=== PATIENT | female | born 2005 | race Two or more races ===

== ENCOUNTER 2024-12-07 19:17 | Observation (INO) | payer SELFPAY ==
[2024-12-07 19:26] VITALS: BP 115/77; PULSE 92; RESP 16; TEMP 37.6; O2SAT 99; BMI 21.3
--- NOTE | 2024-12-07 20:30 | EDNOTE_ITS ---
ED GI Bleed RME/HPI General Chief complaint: GI Bleed Stated complaint: RECTAL BLEEDING WITH BM, 7 WKS Time Seen by Provider: 12/07/24 20:20 Arrival date/time: 12/07/24 19:17 RME / HPI RME / HPI Narrative: This section includes all my notes and documentations, including HPI, PE, and ED course. Ildefonso Olivera MD HPI: 19-year-old female here to be evaluated with several days of rectal pain and blood with stools. She is currently , [place] 28 weeks. Baby has been moving well. No contractions. No vaginal bleeding. No hematemesis or coffee- ground emesis. No tarry stools. No other complaints. ROS: All negative except as documented in HPI. Physical Exam: General: Alert and oriented. No acute distress when remaining still. Eyes: Conjunctivae and lids clear. ENT: No nasal congestion. Neck: Supple. Heart: RRR. Lungs: No respiratory distress. Good air movement. No rhonchi, wheezing, rales. Abdomen: Soft and nontender. Normal bowel sounds. No distension. No rebound or guarding. Back: No CVA tenderness. Skin: Warm and dry. Neuro: Alert and oriented X 3. Rectal: External hemorrhoids noted, not thrombosed. I reviewed all diagnostic test results. CBC unremarkable. At this point, diagnoses include external hemorrhoids. Prescribed Anusol suppositories and recommended more outpatient workup. Based on my best medical judgment, made decision no further evaluation or paul atment indicated at this time. Patient understands and agrees to the discharge instructions customized and printed, see below. Discharge instructions from Dr. Olivera: ?After evaluation, your symptoms are due to hemorrhoids.? See attached handout. --You are medically clear for further evaluation by our L&D department. ?Use Anusol suppositories as prescribed to help heal your hemorrhoids. ?During bowel movements, avoid pushing too hard which can cause hemorrhoids. ?To help prevent hard stools, increase oral fluid and maintain clear urine (if dark or yellow, increase oral fluid).? And increase every day exercising and eating fresh fruits and fresh vegetables. ?Sitz bath in warm water and Epsom salt for 15 minute 2 or 3 times daily until your hemorrhoids resolve. ?See a private doctor on 02/11/2025 for recheck. To make sure there is no serious intra-abdominal condition, ask for help with more investigation not available here in the ER. Such as EGD or scoping the stomach, colonoscopy or scoping the colon, and referral to see patient admitting representative. ?Seek immediate medical care with worsening or with any concerns. Ildefonso Olivera MD Related Data Previous Rx's ?Medication ?Instructions ?Recorded hydrocortisone acetate 25 mg 25 mg IN BID 14 days #28 ea 12/07/24 rectal suppository (Anusol-HC) Allergies Allergy/AdvReac Type Severity Reaction Status Date / Time No Known Allergies Allergy Verified 12/07/24 19:18 Course Quality Measures none Orders Category Date Time Status CBC Stat Lab 12/07/24 20:55 Completed Vital Signs Vital signs: Vital Signs Temperature 99.6 F 12/07/24 19:26 Pulse Rate 92 12/07/24 19:26 Respiratory Rate 16 12/07/24 19:26 Blood Pressure 115/77 12/07/24 19:26 Pulse Oximetry (%) 99 12/07/24 19:26 Oxygen Delivery Method Room Air 12/07/24 19:26 GI Bleed Patient data External records reviewed:: [facility] previous records Clinical information provided by:: patient and spouse Social determinants that could affect healthcare access:: none Patient has the following chronic illnesses:: None How is presenting disease/condition affected by chronic disease/condition?: no chronic disease Evaluation data The following diagnostics were reviewed and interpreted by me:: lab results Lab and/or radiology exams considered but not ordered:: None Interpretation Summary: Normal CBC Medications / Prescriptions Medications or Prescriptions considered but not ordered:: None Medication administrations:: None Consultations Consultation(s) initiated? (list below): No Diagnosis GI bleed differential diagnosis: hemorrhoids, infectious diarrhea, esophageal varices, gastritis, Rowena-Rivers syndrome, Upper gastrointestinal hemorrhage, Lower gastrointestinal hemorrhage, hematochezia, melena and anal fissure Most likely diagnosis given after review of the tests above:: External hemorrhoids Admission Indicated Admission indicated?: not indicated Explain why admission is indicated or not indicated:: There was no indication for admission. Admission Request Was there a request for admission?: No Disposition Plan Disposition Plan: Discharge Discharge Attestation Discharge Attestation: The patient and all family members were given an opportunity to ask questions and understood the discharge instructions. Discharge instructions specifically effects, indications for sooner follow up or return to the emergency department, and the expected course of current diagnosis. Patient condition: Stable Discharge Plan Plan Patient Disposition: HOME (Self Care) Prescriptions/Referrals Prescriptions/Med Rec: New hydrocortisone acetate [Anusol-HC] 25 mg suppository 25 mg IN BID 14 Days Qty: 28 0RF Referrals: No Primary/Family,Physician [Primary Care Provider] - In 1 week Problem List Clinical Impression: Hemorrhoids Patient/Caregiver Discharge Instructions Discharge Activity: activity as tolerated Education Materials: ED Hemorrhoids Additional Instructions: Discharge instructions from Dr. Olivera: ?After evaluation, your symptoms are due to hemorrhoids.? See attached handout. --You are medically clear for further evaluation by our L&D department. ?Use Anusol suppositories as prescribed to help heal your hemorrhoids. ?During bowel movements, avoid pushing too hard which can cause hemorrhoids. ?To help prevent hard stools, increase oral fluid and maintain clear urine (if dark or yellow, increase oral fluid).? And increase every day exercising and eating fresh fruits and fresh vegetables. ?Sitz bath in warm water and Epsom salt for 15 minute 2 or 3 times daily until your hemorrhoids resolve. ?See a private doctor on 02/11/2025 for recheck. To make sure there is no serious intra-abdominal condition, ask for help with more investigation not available here in the ER. Such as EGD or scoping the stomach, colonoscopy or scoping the colon, and referral to see patient admitting representative. ?Seek immediate medical care with worsening or with any concerns. Instrucciones de josefa del Dr. Olivera: ?Despu?s de la evaluaci?n, leonila s?ntomas se deben a hemorroides. Consulte el folleto adjunto. ?Est? m?dicamente autorizado para milla evaluaci?n adicional en nuestro departame nto de partos. ?Use los supositorios Anusol seg?n lo prescrito para ayudar a sanar leonila hemorroides. ?Cordelia las deposiciones, evite pujar con demasiada fuerza, ya que puede causar hemorroides. ?Para ayudar a prevenir heces duras, aumente la cantidad de fluidos orales y mantenga la orina maddi (si es oscura o amarilla, aumente la cantidad de fluidos orales). Incremente el ejercicio diario y el consumo de frutas y verduras frescas. ?Ba?o de asiento con agua tibia y sales de Epsom cordelia 15 minutos, 2 o 3 veces al d?a, hasta que las hemorroides desaparezcan. ?Consulte con un m?dico particular el 07/09/2025 para milla nueva revisi?n. Para asegurarse de que no haya milla afecci?n intraabdominal grave, solicite ayuda con m?s pruebas que no est?n disponibles en urgencias. [place] EGD o endoscopia g?strica, colonoscopia o endoscopia de colon, y derivaci?n a un gastroenter?logo. ?Busque atenci?n m?dica inmediata si presenta empeoramiento o cualquier inquietud. Print Language: Latvian Stand Alone Forms: Sho Award Info., Patient Portal Info Letter
[2024-12-07 21:34] LABS: Basophils % (Auto) 0 % (0-2.5); Eosinophils % (Auto) 0 % (0-10); Hematocrit 34.9 % (36.0-46.0); Hemoglobin 11.5 g/dL (12.0-16.0); Immature Granulocytes % (Auto) 0 % (0-0); Immature Granulocytes Auto 0.04 Thou/mm3 (0.00-0.00); Lymphocytes % (Auto) 21 % (10-50); Mean Corpuscular Hemoglobin 29.6 pg (25.0-35.0); Mean Corpuscular Volume 90 fL (80-100); Monocytes # (Auto) 0.7 Thou/mm3 (0.0-0.8); Monocytes % (Auto) 7 % (0-12); Neutrophils # (Auto) 6.8 Thou/mm3 (1.8-7.7); Neutrophils % (Auto) 71 % (37-80); Nucleated Red Blood Cell % 0 /100 WBC (0); Platelet Count 268 Thou/mm3 (140-440); RDW Standard Deviation 37.9 fL (36.4-46.3); Red Blood Count 3.88 Miln/mm3 (4.00-5.20); White Blood Count 9.6 Thou/mm3 (3.6-11.0)
[2024-12-07 22:14] VITALS: BP 105/70; PULSE 80; RESP 17; TEMP 36.9; O2SAT 99
[2024-12-07 22:20] VITALS: BP 105/66; PULSE 80; RESP 16; RESP 99; TEMP 36.6; O2SAT 99
[2024-12-07 22:29] VITALS: BMI 22.7
[2024-12-07 22:30] VITALS: TEMP 36.6
== END 2024-12-07 22:59 | disposition home or self-care (01) ==
LOC: SERX 21:59 → S4SX 22:14
PROVIDERS: Admitting Provider Student in an Organized Health Care Education/Training Program; Emergency Provider Emergency Medicine; Visit Provider Student in an Organized Health Care Education/Training Program
DX: O22.43 Hemorrhoids in pregnancy, third trimester (principal); Z3A.28 28 weeks gestation of pregnancy
CPT/HCPCS: 36415; 59025; 59899; 85025; 99281

== ENCOUNTER 2025-02-06 14:39 | Observation (INO) | payer MEDICAID, SELFPAY ==
[2025-02-06] VITALS (11 sets, daily range): BP systolic 100–115; BP diastolic 66–78; PULSE 79–103; RESP 18–99; TEMP 36.6; O2SAT 93–98; BMI 199.1
[2025-02-06 15:29] LABS: ROM Kit Lot # 578010271; Rupture of Fetal Membranes Negative (Negative); Swb Mxed in Solvent 1 min? Yes
--- NOTE | 2025-02-06 15:46 | PC.NURSE ---
1544 pt dc in stable condition, labor precautions, and kick counts reviewed, copies given. pt agrees/undertands.
== END 2025-02-06 15:44 | disposition home or self-care (01) ==
PROVIDERS: Admitting Provider Specialist; Visit Provider Specialist
DX: O47.1 False labor at or after 37 completed weeks of gestation (principal); Z3A.37 37 weeks gestation of pregnancy
CPT/HCPCS: 59025; 59899; 84112

== ENCOUNTER 2025-02-07 05:16 | Inpatient (IN) | payer MEDICAID, SELFPAY ==
[2025-02-07] VITALS (91 sets, daily range): BP systolic 108–148; BP diastolic 53–90; PULSE 52–210; RESP 16–98; TEMP 36.4–36.9; O2SAT 76–100; BMI 22.8
[2025-02-07 09:09] LABS: ROM Kit Lot # 578010271; ROM Swab Mixed By: JL; Rupture of Fetal Membranes Positive (Negative); Swb Mxed in Solvent 1 min? Yes
--- NOTE | 2025-02-07 11:08 | ESHP_ITS ---
Documentation for date of: 02/07/25 OB Labor/Induct. HPI History of Present Illness Chief complaint: Labor : 2 Para: 1 Term pregnancies: 1 pregnancies: 0 Living children: 1 History of Abortions: Spontaneous and Elective: 0 History of Vaginal deliveries: 0 History of sections: No History of : No JUANITA: 02/23/25 Gestational Age (weeks): 37 Gestational Age (days): 5 History of present illness: The patient is a 19-year-old -0-0-1 at 37-5/7 weeks who presented in early labor. Her last delivery was in [place]. She presented to labor and delivery in early labor and walked for a couple of hours. Patient was 3 to 4 cm dilated she did start leaking and an AmniSure was positive. She was admitted in early labor with leaking membranes. All care up-to-date in the and on the chart with [facility] History of Present Dating criteria: LMP confirmed by 2nd trimester US Adequate Care: Yes Ultrasounds: normal mid trimester US Obstetrical complications: none Medical complications: none Labs Maternal Blood Type: O Pos Labs: Positive: Rubella Titre, Negative: RPR, Hepatitis B, HIV, Chlamydia, Gonorrhea and Group Beta Strep and Unknown: Herpes Type 1, Herpes Type 2 and Covid-19 Past Medical History Surgical History SURGICAL: Negative Section Meds Home Medications and Allergies Home Medications ?Medication ?Instructions ?Recorded ?Confirmed ?Type No Known Home Medications 02/06/25 0603/27 History Allergies Allergy/AdvReac Type Severity Reaction Status Date / Time No Known Allergies Allergy Verified 02/07/25 05:31 OB Exam Physical Exam Vital signs: Temp Pulse Resp BP Pulse Ox 98.4 F 81 18 115/72 98 02/07/25 05:23 02/07/25 10:15 02/07/25 05:23 02/07/25 10:15 02/07/25 07:10 Detailed Labor and Delivery Exam Dilation (cm): 3-4 Effacement (%): 70 Cervix position: posterior station: -2 Consistency: soft Presentation: Vertex Membranes: other (Leaking clear fluid) Amniotic fluid: clear monitor accelerations: 15x15 monitor decelerations: None retirement variability: Moderate (11-25) Contraction frequency (min): Irregular uterine contractions Tachysystole: No Contraction intensity: Mild OB Assessment & Plan Assessment and Plan (1) Supervision of high risk in third trimester: Status: Acute Assessment and plan: Admission admit patient in early labor. Consider AROM IUPC and Pitocin augmentation if patient's contractions space out. Additional Plan Induction method: per pitocin protocol Plan: augmentation and anticipate NVD Additional Plan Comment: Augment if contractions spaced out.
[2025-02-07 11:38] LABS: Basophils % (Auto) 0 % (0-2.5); Eosinophils # (Auto) 0.1 Thou/mm3 (0.0-0.5); Eosinophils % (Auto) 1 % (0-10); Hematocrit 31.4 % (36.0-46.0); Hemoglobin 10.3 g/dL (12.0-16.0); Immature Granulocytes % (Auto) 1 % (0-0); Immature Granulocytes Auto 0.07 Thou/mm3 (0.00-0.00); Lymphocytes # (Auto) 3.1 Thou/mm3 (1.0-4.8); Lymphocytes % (Auto) 26 % (10-50); Mean Corpuscular HGB Conc 32.8 g/dl (31.0-37.0); Mean Corpuscular Hemoglobin 26.1 pg (25.0-35.0); Mean Corpuscular Volume 80 fL (80-100); Monocytes # (Auto) 0.7 Thou/mm3 (0.0-0.8); Monocytes % (Auto) 6 % (0-12); Neutrophils % (Auto) 67 % (37-80); Nucleated Red Blood Cell % 0 /100 WBC (0); Platelet Count 260 Thou/mm3 (140-440); RDW Standard Deviation 39.5 fL (36.4-46.3); Red Blood Count 3.94 Miln/mm3 (4.00-5.20); White Blood Count 11.9 Thou/mm3 (3.6-11.0)
[2025-02-07 12:10] LABS: Syphilis Nonreactive (Nonreactive)
[2025-02-07] MEDS: RINGERS LACTATED 1000 ML 1,000 ML 100 ML IV (12:57)
--- NOTE | 2025-02-07 13:15 | PD.LDPN ---
Documentation for date of: 02/07/25 OB Labor Progress Note Pain Control Pain control: epidural Comments: Patient uncomfortable and requested epidural which has been placed. She is now resting comfortably in bed. Pelvic Exam Dilation (cm): 5 Effacement (%): 90 station: -2 Amniotic membrane status: Ruptured Comments: Ruptured bag of water at 1300. Clear fluid. IUPC placed. Contractions Monitor mode: Internal Contraction frequency: 5-7 Contraction intensity: Moderate Status status: Category l Assessment and Plan Plan OB labor note: begin Pitocin augmentation Comments: Contractions are spaced out and the patient is comfortable with epidural and placed . She is 5 cm dilated. The plan is to start Pitocin augmentation at 2 milliunits/min up by 2 every 30 minutes. Orders written. EFW 6-1/2 pounds.
[2025-02-07] MEDS: OXYTOCIN in NS 20 units 20 UNIT/1,000 ML BAG 125 UNIT IV (14:39)
--- NOTE | 2025-02-07 16:02 | PD.LDDELS ---
Data ([facility]) Data Hx Section: No Maternal Blood Type: O Pos Rubella Titre: Positive RPR: Non-reactive Labs: Negative: RPR, Hepatitis B, HIV, Chlamydia, Gonorrhea and Group Beta Strep : 2 Term: 1 : 0 Livin Abortions: Spontaneous & Theraputic: 0 Delivery Data ([facility]) Labor Data Initiation of labor: Spontaneous Induction/Augmentation Agent: None ROM date: 02/07/25 ROM time: 08:50 Amniotic membrane rupture type: Spontaneous Amniotic fluid description: Clear Delivery Data EDC: 02/23/25 EDC calculated by:: LMP/early US confirmation Date of arrival to unit: 02/07/25 Onset of labor date: 02/07/25 Onset of labor time: 08:05 Complete dilation date: 02/07/25 Complete dilation time: 14:29 delivery date: 02/07/25 delivery time: 14:35 Gestational age (weeks): 37 Gestational age (days): 5 Placenta delivery date: 02/07/25 Placenta delivery time: 14:36 Stage 1 total time: Labor - Stage 1 Duration 6 hours and 24 minutes Delivered by: [facility] ([facility]) Delivery nurse: Robby Fontana nurse: Sheila MOONEY Project Management Specialist at delivery: No Support person(s) at delivery: FOB Other staff at delivery: Delia ortiz loss control technician Method Delivery method: Normal Vaginal Delivery Presentation: Vertex position: OA Anesthesia Type Anesthesia Type: Epidural Placenta Placenta delivery description: Spontaneous Cord blood sent to lab: Yes cord blood collection: Cord Blood Type Episiotomy Episiotomy description: None EBL Estimated blood loss (ml): 50 Umbilical Cord cord description: 3 Vessels and Nuchal Cord Additional Procedures Patient is a 19-year-old -0-0-1 who presented to OB triage reporting early labor. She walked for an hour or 2 and started leaking. She was admitted. She had labor epidural placed. I ruptured a forebag at 1300. Patient went on to rapidly progressed to complete by 1429 and pushed through approximately 3 contractions delivering a liveborn male at 1435. Findings liveborn male in the SH[place] presentation with a loose nuchal cord x 1 no meconium Apgars were 8 and 9 weight was 6 pounds 10 ounces. The placenta was complete spontaneous grossly normal delivering within 3 minutes of the baby delivering. The patient delivered over an intact perineum. Complications were none. Condition:both mom and infant were in stable condition in the delivery room Complications Complications: None Data ([facility]) Elton Data Elton's name: Arslan order: 1 Elton's gender: Male Identification band number: [id number] weight (gms): 2995 g Weight (pounds): 6 lbs and 9.6 ozs Elton length: 52 cm 1 minute: 8 5 minutes: 9
[2025-02-07] MEDS: IBUPROFEN TAB 400 MG TABLET 800 MG PO (16:12)
[2025-02-07 21:23] LABS: Basophils % (Auto) 0 % (0-2.5); Eosinophils # (Auto) 0.1 Thou/mm3 (0.0-0.5); Eosinophils % (Auto) 1 % (0-10); Hematocrit 25.3 % (36.0-46.0); Immature Granulocytes % (Auto) 1 % (0-0); Immature Granulocytes Auto 0.06 Thou/mm3 (0.00-0.00); Lymphocytes # (Auto) 2.2 Thou/mm3 (1.0-4.8); Lymphocytes % (Auto) 18 % (10-50); Mean Corpuscular HGB Conc 33.6 g/dl (31.0-37.0); Mean Corpuscular Hemoglobin 26.9 pg (25.0-35.0); Mean Corpuscular Volume 80 fL (80-100); Monocytes # (Auto) 0.9 Thou/mm3 (0.0-0.8); Monocytes % (Auto) 8 % (0-12); Neutrophils # (Auto) 8.7 Thou/mm3 (1.8-7.7); Neutrophils % (Auto) 73 % (37-80); Nucleated Red Blood Cell % 0 /100 WBC (0); Platelet Count 201 Thou/mm3 (140-440); RDW Standard Deviation 39.2 fL (36.4-46.3); Red Blood Count 3.16 Miln/mm3 (4.00-5.20); White Blood Count 11.9 Thou/mm3 (3.6-11.0)
[2025-02-07 21:24] LABS: Hemoglobin 8.5 g/dL (12.0-16.0)
[2025-02-08 03:00] VITALS: BP 116/75; PULSE 64; RESP 18; TEMP 36.6; O2SAT 100
[2025-02-08 07:45] VITALS: BP 96/55; PULSE 75; RESP 16; TEMP 36.9; O2SAT 97
[2025-02-08] MEDS: IBUPROFEN TAB 400 MG TABLET 800 MG PO (08:06)
[2025-02-08 11:00] VITALS: BP 119/65; PULSE 62; RESP 19; TEMP 36.7; O2SAT 98
--- NOTE | 2025-02-08 11:04 | PD.LDPPPRG ---
Subjective Subjective Interval history: 19-year-old -0-0-2 day #1 status post normal spontaneous vaginal delivery yesterday. She delivered over an intact perineum and did not require any stitches. Today the patient is resting comfortably in bed. She denies heavy bleeding. She is reporting some cramps but this is relieved by ibuprofen. She is breast-feeding. She has a 4-year-old at home. She would like to be discharged later today. Exam Vital Signs Temp Pulse Resp BP Pulse Ox O2 Del Method 98.5 F 75 16 96/55 L 97 Room Air 02/08/25 07:45 02/08/25 07:45 02/08/25 07:45 02/08/25 07:45 02/08/25 07:45 02/08/25 07:45 Narrative Exam Patient is alert and oriented x 3 in no apparent distress. Her fundus is firm. Her extremities show mild edema no erythema. Constitutional Constitutional: no acute distress and cooperative Objective Labs 02/07/25 20:54 Labs: Laboratory Results - last 24 hr 02/07/25 02/07/25 10:25 20:54 WBC 11.9 H 11.9 H RBC 3.94 L 3.16 L Hgb 10.3 L 8.5 L Hct 31.4 L 25.3 L MCV 80 80 MCH 26.1 26.9 MCHC 32.8 33.6 RDW Std Deviation 39.5 39.2 Plt Count 260 201 D Neut % (Auto) 67 73 Lymph % (Auto) 26 18 [place] % (Auto) 6 8 Eos % (Auto) 1 1 Baso % (Auto) 0 0 Neut # (Auto) 8.0 H 8.7 H Lymph # (Auto) 3.1 2.2 [place] # (Auto) 0.7 0.9 H Eos # (Auto) 0.1 0.1 Baso # (Auto) 0.0 0.0 Immature Gran # (Auto) 0.07 H 0.06 H Absolute Nucleated RBC 0.00 0.00 Immature Gran % 1 H 1 H Nucleated RBC % 0 0 Syphilis Serology Nonreactive Blood Type O Positive Antibody Screen NEGATIVE Blood Bank Wristband ID Yes Assessment & Plan Problem List (1) Supervision of high risk in third trimester: Status: Acute (2) Term delivered: Problem details: Patient is tolerating a general diet. She is breast-feeding. She is not bleeding heavily. She is afebrile. Vitals are stable. We will discharge home later today. [facility]. Status: Acute Time Spent With Patient Time: Total time spent is greater than 50% in coordination of care (as documented) at patient's floor/unit and/or counseling patient: Time with patient: less than 15 minutes
--- NOTE | 2025-02-08 11:08 | PD.LDDS ---
DS: Providers Provider Date of admission: 02/07/25 09:20 Primary care physician: Physician No Primary/Family Admitting Provider: [facility]as MD ([facility]) Attending Provider on Admission: Linda Vargas MD ([facility]) Consults: 02/07/25 14:50 Referral Routine Comment: Attending Provider on DC: Linda Vargas MD ([facility]) Discharging Provider: Linda Vargas MD ([facility]) Anticipated date of discharge: 02/08/25 DS: Diagnosis Discharge Diagnosis (1) Term delivered: Status: Acute Assessment & Plan: day #1. Patient is stable. Will discharge home later today. Problem List Completed Was Problem List Reviewed/Reconciled?: Yes Summary/Hosp Course Brief History: The patient is a 19-year-old -0-0-1 at 37-5/7 weeks who presented in early labor. Her last delivery was in [place]. She presented to labor and delivery in early labor and walked for a couple of hours. Patient was 3 to 4 cm dilated she did start leaking and an AmniSure was positive. She was admitted in early labor with leaking membranes. All care up-to-date in the and on the chart with [facility] Patient had epidural placed and went on to progress to complete. She delivered vaginally without difficulty. Please see the delivery note for further details. course was uncomplicated she was discharged home day #1 in stable condition Peripartum Data Delivery Method: Normal Vaginal Delivery Episiotomy Description: None complications: none Status at Discharge Functional status at discharge: independent ambulation Overall status at discharge: patient is progressing back to baseline Time Spent with Patient Time attestation: Total time spent providing and/or coordinating discharge services: Time spent: Less than 30 minutes Specific discharge activities: No intercourse tampons douching bathtubs or swimming pools x 6 weeks Exam Vital Signs Temp Pulse Resp BP Pulse Ox O2 Del Method 98.5 F 75 16 96/55 L 97 Room Air 02/08/25 07:45 02/08/25 07:45 02/08/25 07:45 02/08/25 07:45 02/08/25 07:45 02/08/25 07:45 Narrative Exam Patient is alert and oriented x 3 in no apparent distress fundus is firm at umbilicus ,extremities show no cyanosis clubbing or edema Discharge Plan Plan Patient Disposition: HOME (Self Care) Disposition Comment: Stable Patient condition on transfer: Stable Prescriptions/Referrals Prescriptions/Med Rec: No Action No Known Home Medications Referrals: No Primary/Family,Physician [Primary Care Provider] - Patient/Caregiver Discharge Instructions Discharge Activity: activity as tolerated Other Discharge Activity Instructions:: Pelvic rest x 6 weeks Other Discharge Diet Instructions: [facility] in 3-6 semanas Education Materials: After a Vaginal , Print Language: Tamazight Activity Restrictions/Additional Instructions: Pelvic rest x 6 weeks. No intercourse, tampons, douching, tampons or bath tubs x 6 weeks. Call for heavy vaginal bleeding severe depression or fevers Stand Alone Forms: Sho Award Info., Patient Portal Info Letter, Work/Release Restrictions Discharge Order Discharge Orders: Discharge (Routine); Ordered 02/08/25 Ordered By: Linda Vargas ([facility]) Planned Discharge Date 02/08/25
== END 2025-02-08 15:06 | disposition home or self-care (01) | DRG 560 ==
LOC: S4SX 10:33 → S4NX 17:24
PROVIDERS: Admitting Provider Obstetrics & Gynecology; Visit Provider Obstetrics & Gynecology
DX: O69.81X0 Labor and delivery complicated by cord around neck, without compression, not applicable or unspecified (principal); Z3A.37 37 weeks gestation of pregnancy; Z37.0 Single live birth
CPT/HCPCS: 36415; 59025; 59409; 84112; 85025; 86780; 86850; 86900; 86901; 94762; J2590; J2795; J3010; J7120; A9270